=== PATIENT | female | born 1950 | race Caucasian/White ===

== ENCOUNTER 2023-11-16 12:47 | Emergency (ER) | payer MEDICARE, OTHER ==
--- NOTE | 2023-11-16 12:59 | ED Physician Documentation ---
PD HPI UPPER EXT INJURY - Stated complaint Stated Complaint: RT WRIST INJ - Chief complaint Chief Complaint: Trauma Ext - History obtained from History obtained from: Patient - History of Present Illness Location: Right, Wrist Type of injury: Fall (walking backward pulling something and slilpped and fell. Pain at wrist. Denies other injury.) Timing - onset: Today Timing - details: Abrupt onset, Still present PD PAST MEDICAL HISTORY - Past Medical History Past Medical History: Yes Cardiovascular: None Respiratory: None Neuro: None Endocrine/Autoimmune: None GI: Hiatal hernia MATERIALS TECH: None : None HEENT: None Psych: None Musculoskeletal: None Derm: None - Past Surgical History Past Surgical History: No - Present Medications Home Medications: Ambulatory Orders Medication Instructions Recorded Confirmed HYDROcod/ACETAM 5/325 [[place] 5/325] 1 ea PO Q6H PRN #14 tablet 11/16/23 Meloxicam [Mobic] 7.5 mg PO BID 10 Days #20 tablet 11/16/23 - Allergies Allergies/Adverse Reactions: Allergies Allergy/AdvReac Type Severity Reaction Status Date / Time No Known Drug Allergies Allergy Verified 11/16/23 12:51 - Social History Does the pt smoke?: No Smoking Status: Former smoker Does the pt drink ETOH?: Yes Does the pt have substance abuse?: No - Immunizations Immunizations are current?: No Immunizations: Other immun not current - POLST Patient has POLST: No PD ED PE NORMAL - Vitals Vital signs reviewed: Yes - General General: Alert and oriented X 3, Well developed/nourished - HEENT HEENT: Atraumatic - Neck Neck: Supple, no meningeal sign, No bony TTP - Extremities Extremities: Other (right wrist with swelling and tenderness over dorsal distal radius with bony bump c/w mildly angulted fracture. ) - Neuro Neuro: Alert and oriented X 3, No motor deficit, No sensory deficit, Other (good color and cap refill in fingers. ) Results - Vitals Vitals: Oxygen O2 Source Room air - Rads (name of study) right wrist Relevant Findings:: Prelim report reviewed, EMP independent interpretation of test (distal radius fracture with mild angulation about 10-15 degress, and nondisplaced. ) Procedures - Splint (location) - Minor right wrist Splint applied by: Tech Type of splint: Fiberglass, Sugar tong Other: Patient tolerated well, No complications, Neurovascular intact, Sling provided PD Medical Decision Making - ED course Complexity details: considered differential (FOOSH when slipped and has likely wrist fracture. Given meds PO for it. ), d/w patient Departure - Departure Disposition: 01 Home, Self Care Clinical Impression: Fall, accidental, Wrist fracture Condition: Stable Record reviewed to determine appropriate education?: Yes Instructions: ED Fx Wrist General Follow-Up: Orthopedic Care [Provider Group] Prescriptions: Meloxicam [Mobic] 7.5 mg PO BID 10 Days #20 tablet HYDROcod/ACETAM 5/325 [[place] 5/325] 1 ea PO Q6H PRN #14 tablet PRN Reason: Pain Comments: You do have a broken wrist with a slight angulation. I think this may be within acceptable degree. I would defer to the judgment of the orthopedics on follow- up. Meanwhile we have splinted and have iced elevate and rested in a sling much of t he time. Follow-up with orthopedics in within the next week or so. Call tomorrow for an appointment and certainly let them know you are here in the ER with a broken wrist. Anti-inflammatories can be useful for this. They can be ntlg-fcp-dopdumi ibuprofen or Aleve. I also wrote for longer half-life 1 called meloxicam that would be just twice a day. Add Tylenol 500 650 mg 4 times daily if needed for pains. In addition you can use hydrocodone pain medicine which is an opiate medicine every 6 hours or so if needed for worse pain. This might be likely needed in the first few days or for sleep at night etc. There should be a good decrease in pain over the first few days as swelling and inflammation decrease. However will still continue painful with gradual decrease over about 4 weeks. I sent your prescriptions to your preferred pharmacy. I am prescribing a short course of narcotic pain medication for you. These are potentially dangerous and addictive medications that should be used carefully. These medications may constipate you. Take an orzt-jfx-jkkjggp stool softener such as docusate twice daily with plenty of water while taking these medications. If you go 24 hours without a bowel movement, take dtbk-wzx-mjtpidy MiraLAX, per package instructions. Do not drink or drive while taking these medications. If you received narcotic or sedating medications while in the emergency department do not drive for 24 hours. Store this medication in a safe, secure place and out of reach of children. It is a violation of federal law to give or sell this medication to another pers on or to use in a manner other than prescribed. The ED will not refill narcotic prescriptions, including prescriptions lost or stolen. You can dispose of unwanted medications at the [facility]'s office or at several pharmacies such as [facility]. Forms: PCP List Discharge Date/Time: 11/16/23 13:55
[2023-11-16] MEDS: HYDROcod/ACETAM 5/325 MG TABLET PO STA (13:36)
[2023-11-16] MEDS: KETOROLAC 30 MG/ML VIAL IM STA (13:37)
[2023-11-16] MEDS: ACETAMINOPHEN 500 MG TABLET PO STA (13:37)
[2023-11-16 14:12] VITALS: BP 120/60; O2SAT 100
--- NOTE | 2023-11-16 14:21 | XRAY Report ---
PROCEDURE: Wrist 3+V RT INDICATIONS: injury TECHNIQUE: 3 views of the wrist were acquired. COMPARISON: None. FINDINGS: Bones: Comminuted and displaced distal radial metaphyseal fracture with dorsal angulation of the dis nick fracture fragment.. No suspicious bony lesions. Soft tissues: No suspicious soft tissue calcifications or masses. IMPRESSION: Comminuted and displaced distal radial fracture. Reviewed by: Robert Saravia MD on 11/16/2023 1:19 PM DESIREE Approved by: Robert Saravia MD on 11/16/2023 1:19 PM AKMICHEL Station ID: [id number]
== END 2023-11-16 13:55 | disposition home or self-care (01) ==
LOC: ED 12:47
DX: S52.501A Unspecified fracture of the lower end of right radius, initial encounter for closed fracture (principal); W01.0XXA Fall on same level from slipping, tripping and stumbling without subsequent striking against object, initial encounter; Y93.01 Activity, walking, marching and hiking; Z87.891 Personal history of nicotine dependence
CPT/HCPCS: 29125; 73110; 96372; 99283; 99284; A9270

== ENCOUNTER 2023-12-28 16:51 | Outpatient (CLI) | payer MEDICARE, OTHER ==
--- NOTE | 2023-12-28 18:39 | XRAY Report ---
PROCEDURE: Wrist 3+V RT INDICATIONS: PX IN R WRIST TECHNIQUE: 3 views of the wrist were acquired. COMPARISON: 11/16/2023. FINDINGS: Bones: Overlying casting material limits fine bony detail. Similar alignment of comminuted distal ra dial fracture.. No suspicious bony lesions. Soft tissues: No suspicious soft tissue calcifications or masses. IMPRESSION: Similar alignment of comminuted distal radial fracture status post casting. Reviewed by: Robert Serrano MD on 12/28/2023 6:38 PM PDT Approved by: Robert Serrano MD on 12/28/2023 6:38 PM PDT Station ID: [id number]
== END 2023-12-28 16:52 | disposition home or self-care (01) ==
LOC: DI 16:51
PROVIDERS: ATTEND Orthopaedic Surgery
DX: S52.501D Unspecified fracture of the lower end of right radius, subsequent encounter for closed fracture with routine healing (principal)

== ENCOUNTER 2024-01-22 16:05 | Outpatient (CLI) | payer MEDICARE, OTHER ==
[2024-01-22 17:17] LABS: BASOPHILS % (AUTO) 0.7 %; EOSINOPHILS # (AUTO) 0.3 10^3/uL (0.0-0.7); EOSINOPHILS % (AUTO) 4.8 %; HCT - HEMATOCRIT 30.6 % (37.0-47.0); HGB - HEMOGLOBIN 9.2 g/dL (12.0-16.0); LYMPHOCYTES # (AUTO) 0.4 10^3/uL (1.5-3.5); LYMPHOCYTES % (AUTO) 6.1 %; MEAN CORPUSCULAR HEMOGLOBIN 25.3 pg (27.0-31.0); MEAN CORPUSCULAR HGB CONC 30.1 g/dL (32.0-36.0); MEAN CORPUSCULAR VOLUME 84.3 fL (81.0-99.0); MEAN PLATELET VOLUME 10.7 fL (7.9-10.8); MONOCYTES # (AUTO) 0.6 10^3/uL (0.0-1.0); MONOCYTES % (AUTO) 9.6 %; NEUTROPHILS # (AUTO) 4.8 10^3/uL (1.5-6.6); NEUTROPHILS % (AUTO) 78.5 %; PLT - PLATELET COUNT 128 10^3/uL (130-450); RED BLOOD COUNT 3.63 10^6/uL (4.20-5.40); RED CELL DISTRIBUTION WIDTH 25.2 % (12.0-15.0); WHITE BLOOD COUNT 6.1 x10^3/uL (4.8-10.8)
[2024-01-22 17:20] LABS: SLIDE REVIEW? Indicated
[2024-01-22 17:46] LABS: PLATELET ESTIMATE, MANUAL DECREASED (<130,000) (NORMAL); PLATELET MORPHOLOGY NORMAL APPEARANCE (NORMAL)
--- NOTE | 2024-01-23 08:53 | XRAY Report ---
PROCEDURE: Wrist 3+V RT INDICATIONS: UNSPEC. FX OF LOWER END OF RIGHT RADIUS TECHNIQUE: 3 views of the wrist were acquired. COMPARISON: Right wrist x-rays 11/16/2023 and 12/28/2023 FINDINGS: Diffuse osseous demineralization. Continued healing of distal radial transversely oriented metaphysea l fracture with interval increase in callus formation. Mild residual dorsal angulation of the distal fracture fragment, although improved from the comparison exams. 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 IMPRESSION: Continued healing of distal radial extra-articular metaphyseal fracture. Reviewed by: Ponce Jackson MD on 01/23/2024 8:52 AM PDT Approved by: Ponce Jackson MD on 01/23/2024 8:52 AM PDT Station ID: [id number]
== END 2024-01-22 16:06 | disposition home or self-care (01) ==
LOC: DI 16:05
PROVIDERS: ATTEND Orthopaedic Surgery
DX: S52.551D Other extraarticular fracture of lower end of right radius, subsequent encounter for closed fracture with routine healing (principal)
CPT/HCPCS: 36415; 85025